=== PATIENT | male | born 1975 | race Caucasian/White ===

== ENCOUNTER 2017-04-09 11:31 | Inpatient (IN) | payer OTHER ==
--- NOTE | 2017-04-09 11:48 | EDPHY ---
H & P Stated Complaint: BARRY, GENERALIZED ABD PAIN, N/V Time Seen by Provider: 04/09/17 11:45 HPI/ROS: 41-year-old male presents complaining diffuse abdominal pain crampy in nature with occasional diarrhea also with vomiting that began today. Five days ago he began to have what he thought was a cold, body aches and just did not feel well 3 days ago he began to have some crampy abdominal pain intermittent. He felt better yesterday and then began this morning the abdominal pain returned was crampy associated with both vomiting and diarrhea. States his last regular bowel movement was on Wednesday. He drinks alcohol daily generally too tall boys with several shots. He has not seen a doctor since 1992. Review of systems As per HPI General no fever no chills no weakness HEENT no eye pain no eye discharge. No eye redness, no sore throat Respiratory no cough, no shortness of breath Cardiac no chest pain, no peripheral edema GI positive abdominal pain positive diarrhea positive constipation positive nausea positive vomiting no flank pain, no hematuria, no dysuria Musculoskeletal positive myalgias, no joint pain Heme no easy bruising, no easy bleeding Endo no polyuria, no polydipsia Skin no rashes, no pruritus Neuro no syncope, no dizziness, no headaches Psych is no suicidal ideation, no homicidal ideation Source: Patient - Personal History Current Tetanus/Diphtheria Vaccine: Unsure - Medical/Surgical History Other PMH: HAND SURG - Family History Significant Family History: No pertinent family hx - Social History Smoking Status: Current some day smoker Alcohol Use: Heavy - Physical Exam Exam: 41-year-old male morbidly obese alert and oriented, in moderate distress secondary to abdominal pain, afebrile HEENT atraumatic normocephalic, extraocular muscles intact, anicteric Oropharynx negative for erythema negative exudate, tolerating her own secretions Neck supple no meningismus Lungs clear to auscultation bilaterally Heart regular rate and rhythm without murmur rub or gallop Abdomen morbidly obese, tinkling bowel sounds, diffuse mild tenderness no guarding no rebound Area above umbilicus feels firm however nontender to palpation Exam is difficult secondary to patient's body habitus Back no CVA tenderness, no step-offs, no spinal tenderness Extremities no cyanosis clubbing or edema Neuro alert and oriented, no focal deficits Constitutional: Initial Vital Signs Temperature (C) 36.2 C 07/14/17 11:41 Heart Rate 83 04/09/17 11:41 Respiratory Rate 22 H 04/09/17 11:41 Blood Pressure 149/111 H 04/09/17 11:41 O2 Sat (%) 96 04/09/17 11:41 O2 Delivery Mode Room Air Allergies/Adverse Reactions: No Known Allergies Allergy (Unverified 04/09/17 11:40) Home Medications: Medication Instructions Recorded NK [No Known Home Meds] 04/09/17 Medical Decision Making - Diagnostics Imaging Results: Imaging Impressions Abdomen X-Ray 04/09/17 12:06 Impression: 1. Adynamic ileus. 2. Nodule of left hemithorax, possibly in the skin. ED Course/Re-evaluation: Patient seen and evaluated for abdominal pain Differential diagnosis considered Appendicitis, diverticulitis, bowel obstruction, volvulus, acute cholecystitis, pancreatitis, gastroenteritis, hepatitis Patient with no prior abdominal surgeries IV established Patient given IV normal saline 1 L, morphine 4 mg, Zofran 4 mg Plain films obtained Possible ileus with mild distention of small and large intestine CT abdomen and pelvis with contrast obtained Patient was unable to tolerate p.o. contrast Given Reglan and Benadryl and an additional [address] abdomen positive for diverticulitis Impression Diverticulitis Plan IV Flagyl 500 mg given Admit to [facility] discussed with Dr. Escalona - Data Points Laboratory Results: Laboratory Results 04/09/17 11:50 04/09/17 11:50 04/09/17 04/09/17 04/09/17 12:53 11:50 11:50 WBC 11.65 10^3/uL H 10^3/uL (3.80-9.50) RBC 5.75 10^6/uL 10^6/uL (4.40-6.38) Hgb 17.2 g/dL g/dL (13.7-17.5) Hct 48.9 % % (40.0-51.0) MCV 85.0 fL fL (81.5-99.8) MCH 29.9 pg pg (27.9-34.1) MCHC 35.2 g/dL g/dL (32.4-36.7) RDW 12.3 % % (11.5-15.2) Plt Count 397 10^3/uL 10^3/uL (150-400) MPV 9.4 fL fL (8.7-11.7) Neut % (Auto) 77.5 % H % (39.3-74.2) Lymph % (Auto) 12.6 % L % (15.0-45.0) Rutherford % (Auto) 8.8 % % (4.5-13.0) Eos % (Auto) 0.4 % L % (0.6-7.6) Baso % (Auto) 0.4 % % (0.3-1.7) Nucleat RBC Rel Count 0.0 % % (0.0-0.2) Absolute Neuts (auto) 9.03 10^3/uL H 10^3/uL (1.70-6.50) Absolute Lymphs (auto) 1.47 10^3/uL 10^3/uL (1.00-3.00) Absolute Monos (auto) 1.02 10^3/uL H 10^3/uL (0.30-0.80) Absolute Eos (auto) 0.05 10^3/uL 10^3/uL (0.03-0.40) Absolute Basos (auto) 0.05 10^3/uL 10^3/uL (0.02-0.10) Absolute Nucleated RBC 0.00 10^3/uL 10^3/uL (0-0.01) Immature Gran % 0.3 % % (0.0-1.1) Immature Gran # 0.03 10^3/uL 10^3/uL (0.00-0.10) PT INR APTT VBG Lactic Acid 1.0 mmol/L mmol/L (0.7-2.1) Sodium 139 mEq/L mEq/L (134-144) Potassium 4.1 mEq/L mEq/L (3.5-5.2) Chloride 103 mEq/L mEq/L (97-110) Carbon Dioxide 20 mEq/l L mEq/l (22-31) Anion Gap 16 mEq/L mEq/L (8-16) BUN 9 mg/dL mg/dL (7-23) Creatinine 0.8 mg/dL mg/dL (0.7-1.3) Estimated GFR > 60 Glucose 114 mg/dL H mg/dL (70-100) Calcium 9.3 mg/dL mg/dL (8.5-10.4) Total Bilirubin 0.8 mg/dL mg/dL (0.1-1.4) AST 19 IU/L IU/L (17-59) ALT 44 IU/L IU/L (21-72) Alkaline Phosphatase 79 IU/L IU/L (38-126) Total Protein 7.5 g/dL g/dL (6.3-8.2) Albumin 4.0 g/dL g/dL (3.5-5.0) Lipase 74.0 IU/L IU/L (23-300) 04/09/17 11:45 WBC RBC Hgb Hct MCV MCH MCHC RDW Plt Count MPV Neut % (Auto) Lymph % (Auto) Rutherford % (Auto) Eos % (Auto) Baso % (Auto) Nucleat RBC Rel Count Absolute Neuts (auto) Absolute Lymphs (auto) Absolute Monos (auto) Absolute Eos (auto) Absolute Basos (auto) Absolute Nucleated RBC Immature Gran % Immature Gran # PT 12.6 SEC SEC (12.0-15.0) INR 0.97 (0.83-1.16) APTT 29.4 SEC SEC (23.0-38.0) VBG Lactic Acid Sodium Potassium Chloride Carbon Dioxide Anion Gap BUN Creatinine Estimated GFR Glucose Calcium Total Bilirubin AST ALT Alkaline Phosphatase Total Protein Albumin Lipase Medications Given: Discontinued Medications Diphenhydramine HCl (Benadryl Injection) 25 mg IVP EDNOW ONE Stop: 04/09/17 13:22 Last Admin: 04/09/17 13:28 Dose: 25 mg Sodium Chloride (Ns) 1,000 mls @ 0 mls/hr IV ONCE ONE PRN Reason: Wide Open Stop: 04/09/17 11:50 Last Admin: 04/09/17 11:57 Dose: 1,000 mls Sodium Chloride (Ns) 1,000 mls @ 0 mls/hr IV ONCE ONE PRN Reason: Wide Open Stop: 04/09/17 13:22 Last Admin: 04/09/17 13:28 Dose: 1,000 mls Metoclopramide HCl (Reglan Injection) 10 mg IVP EDNOW ONE Stop: 04/09/17 13:22 Last Admin: 04/09/17 13:28 Dose: 10 mg Morphine Sulfate (Morphine) 4 mg IVP EDNOW ONE Stop: 04/09/17 12:06 Last Admin: 04/09/17 12:38 Dose: 4 mg Morphine Sulfate (Morphine) 4 mg IVP EDNOW ONE Stop: 04/09/17 13:54 Last Admin: 04/09/17 13:59 Dose: 4 mg Ondansetron HCl (Zofran) 4 mg IVP EDNOW ONE Stop: 04/09/17 11:50 Last Admin: 04/09/17 11:59 Dose: 4 mg Departure - Departure Disposition: [facility] Inpatient Acute Clinical Impression: Acute diverticulitis Condition: Good
[2017-04-09] MEDS ORDERED: ONDANSETRON 4 MG/2 ML VIAL IVP ONE (11:49)
[2017-04-09] MEDS ORDERED: NS 1,000 ML IV ONE ×2 (11:49→13:21)
[2017-04-09 11:54] LABS: % IMMATURE GRANULYOCYTES 0.3 % (0.0-1.1); ABSOLUTE IMMATURE GRANULOCYTES 0.03 10^3/uL (0.00-0.10); ADD DIFF? NO; ADD MORPH? NO; ADD SCAN? NO; ATYPICAL LYMPHOCYTE FLAG 60 (0-99); FRAGMENT RBC FLAG 0 (0-99); HEMATOCRIT 48.9 % (40.0-51.0); HEMOGLOBIN 17.2 g/dL (13.7-17.5); LEFT SHIFT FLG 10 (0-99); LIPEMIA HEMOLYSIS FLAG 90 (0-99); MEAN CELL HEMOGLOBIN 29.9 pg (27.9-34.1); MEAN CELL HEMOGLOBIN CONCENTR. 35.2 g/dL (32.4-36.7); MEAN PLATELET VOLUME 9.4 fL (8.7-11.7); PLATELET CLUMPS FLAG 20 (0-99); PLATELET COUNT 397 10^3/uL (150-400); RED BLOOD CELL COUNT 5.75 10^6/uL (4.40-6.38); RED CELL DISTRIBUTION WIDTH 12.3 % (11.5-15.2)
[2017-04-09 12:06] LABS: ALANINE AMINOTRANSFERASE 44 IU/L (21-72); ALKALINE PHOSPHATASE 79 IU/L (38-126); ANION GAP 16 mEq/L (8-16); ASPARTATE AMINOTRANSFERASE 19 IU/L (17-59); BILIRUBIN,TOTAL 0.8 mg/dL (0.1-1.4); CALCIUM 9.3 mg/dL (8.5-10.4); CARBON DIOXIDE 20 mEq/l (22-31); CHLORIDE 103 mEq/L (97-110); CREATININE 0.8 mg/dL (0.7-1.3); GLOMERULAR FILTRATION RATE > 60; GLUCOSE 114 mg/dL (70-100); POTASSIUM 4.1 mEq/L (3.5-5.2); SODIUM 139 mEq/L (134-144); TOTAL PROTEIN 7.5 g/dL (6.3-8.2)
[2017-04-09 12:52] LABS: INR 0.97 (0.83-1.16); PROTIME(PATIENT) 12.6 SEC (12.0-15.0)
[2017-04-09 12:53] LABS: APTT 29.4 SEC (23.0-38.0)
[2017-04-09] MEDS ORDERED: IOPAMIDOL (ISOVUE-300) 100 ML BTL ONE ×2 (12:53→13:35)
[2017-04-09] MEDS ORDERED: METOCLOPRAMIDE 10 MG/2 ML VIAL IVP ONE (13:21)
[2017-04-09] MEDS ORDERED: CIPROFLOXACIN 400 MG/DEXTROSE 200 ML IV ONE (14:04)
[2017-04-09] MEDS ORDERED: HYDROmorphONE/DILAUDID 1 MG/ML SYR IVP ONE (15:23)
[2017-04-09] MEDS ORDERED: HYDROmorphONE/DILAUDID 1 MG/ML SYR ONE (15:25)
[2017-04-09] MEDS ORDERED: oxyCODONE IR 5 MG TAB PO PRN (18:12)
[2017-04-09] MEDS ORDERED: ONDANSETRON DISINTEGRATING 4 MG TAB PO PRN (18:12)
[2017-04-09] MEDS ORDERED: ONDANSETRON 4 MG/2 ML VIAL IVP PRN (18:12)
[2017-04-09] MEDS ORDERED: HYDROmorphONE/DILAUDID 1 MG/ML SYR IVP PRN (18:12)
[2017-04-09] MEDS: NS 1,000 ML IV SCH (18:38)
[2017-04-09] MEDS: ERTAPENEM 1 GM in NS 100 ML IV SCH (18:40)
--- NOTE | 2017-04-09 20:40 | GHP ---
[f rep st] HISTORY AND PHYSICAL DATE OF ADMISSION: 04/09/2017 CHIEF COMPLAINT: Abdominal pain. HISTORY OF PRESENT ILLNESS: A 41-year-old male who has no known medical problems. He presents with 4 days of lower abdominal pain associated with nausea and vomiting. He has not had any fevers or c hills. He has not had pain like this before. No previous history of diverticulitis. He has had a little bit of diarrhea. REVIEW OF SYSTEMS: A 10-point review of systems was obtained, other than stated above is negative. PAST MEDICAL HISTORY: None. MEDICATIONS: None. SOCIAL HISTORY: Does drink 2 large beers and 2 shots daily. He has not drank for the last 3 days. He works at [employer]. FAMILY HISTORY: No family history of diverticulitis. PHYSICAL EXAMINATION: VITAL SIGNS: Afebrile, blood pressure is 150/103, heart rate 84, oxygen satu ration 93% on room air. GENERAL: He is well developed, in no apparent distress. HEENT: Nonicteri c sclerae. Extraocular movements intact. Moist mucous membranes. NECK: Supple. No thyromegaly. LUNGS: Good effort. Clear to auscultation bilaterally. CARDIOVASCULAR: Regular rate and rhythm. No murmurs or gallops. ABDOMEN: Positive bowel sounds. Soft, nondistended. No hepatosplenomega ly. Mild left lower quadrant tenderness. EXTREMITIES: No clubbing, cyanosis, or edema. SKIN: Wi thout rash. Warm, dry, intact. NEUROLOGIC: Alert and oriented x3. Moving all 4 extremities equal ly. PSYCH: Normal mood and affect. LABS: White count is elevated at 11, otherwise normal. Chemistries normal. CT scan of the abdomen and pelvis, personally reviewed and interpreted, shows extensive inflammation of the sigmoid colon. There is also air distention of the colon upstream from the inflammation. ASSESSMENT: This is a 41-year-old male with diverticulitis. PLAN: Diverticulitis. We will continue the IV antibiotics. Keep him on clear liquid diet tonight and probably can advance him tomorrow if he is feeling okay. There is a question of upstream air fr om an area of inflammation in his colon on CT scan and recommendation for colonoscopy. This probabl y would be done as outpatient. /[id number]/MODL
[2017-04-09] MEDS: OXYCODONE/APAP 5/325 TAB PO PRN (20:41)
[2017-04-09] MEDS: ENOXAPARIN 40 MG/0.4 ML SYR SC SCH (20:42)
[2017-04-10] MEDS: OXYCODONE/APAP 5/325 TAB PO PRN (03:55)
[2017-04-10] MEDS: NS 1,000 ML IV SCH (03:56)
[2017-04-10 05:30] LABS: ALANINE AMINOTRANSFERASE 33 IU/L (21-72); ALBUMIN 3.1 g/dL (3.5-5.0); ALKALINE PHOSPHATASE 55 IU/L (38-126); ANION GAP 13 mEq/L (8-16); ASPARTATE AMINOTRANSFERASE 16 IU/L (17-59); BILIRUBIN,TOTAL 0.5 mg/dL (0.1-1.4); CALCIUM 8.8 mg/dL (8.5-10.4); CARBON DIOXIDE 20 mEq/l (22-31); CHLORIDE 106 mEq/L (97-110); CREATININE 0.8 mg/dL (0.7-1.3); GLOMERULAR FILTRATION RATE > 60; GLUCOSE 113 mg/dL (70-100); POTASSIUM 4.3 mEq/L (3.5-5.2); SODIUM 139 mEq/L (134-144); TOTAL PROTEIN 6.3 g/dL (6.3-8.2)
[2017-04-10 05:36] LABS: ADD MORPH? NO; ADD SCAN? YES; FRAGMENT RBC FLAG 0 (0-99); HEMATOCRIT 41.9 % (40.0-51.0); HEMOGLOBIN 14.4 g/dL (13.7-17.5); LEFT SHIFT FLG 0 (0-99); LIPEMIA HEMOLYSIS FLAG 90 (0-99); MEAN CELL HEMOGLOBIN 30.4 pg (27.9-34.1); MEAN CELL HEMOGLOBIN CONCENTR. 34.4 g/dL (32.4-36.7); MEAN CELL VOLUME 88.6 fL (81.5-99.8); MEAN PLATELET VOLUME 9.8 fL (8.7-11.7); PLATELET CLUMPS FLAG 0 (0-99); PLATELET COUNT 325 10^3/uL (150-400); RED BLOOD CELL COUNT 4.73 10^6/uL (4.40-6.38); RED CELL DISTRIBUTION WIDTH 12.4 % (11.5-15.2)
[2017-04-10 05:38] LABS: ATYPICAL LYMPHOCYTE FLAG 130 (0-99)
[2017-04-10 06:36] LABS: ADD DIFF? YES; SCAN POSITIVE
[2017-04-10 06:40] LABS: MACROCYTES 1+; PLATELET ESTIMATE ADEQUATE (ADEQ)
[2017-04-10 06:41] LABS: TOXIC GRANULATION PRESENT
[2017-04-10] MEDS: ERTAPENEM 1 GM in NS 100 ML IV SCH (10:07)
[2017-04-10] MEDS: ENOXAPARIN 40 MG/0.4 ML SYR SC SCH (10:07)
--- NOTE | 2017-04-10 10:08 | HOSPPROG ---
Hospitalist Progress Note Assessment/Plan: # acute diverticulitis, proximal colon dilated with air - cont invanz - need colonoscopy as outpatient - clears today # leukocytosis, resolved # nonspecific RUQ LAD - f/u CT 3 months; discussed with patient # skin tag seen on CXR # morbid obesity - BMI 55 Subjective: abd pain much better today; no BM Objective: Vital Signs Temp Pulse Resp BP Pulse Ox 36.6 C 64 14 162/88 H 95 04/10/17 08:00 04/10/17 08:00 04/10/17 08:00 04/10/17 08:00 04/10/17 08:00 Laboratory Results 04/10/17 04:50 04/10/17 04:50 04/09/17 04/10/17 04/11/17 05:59 05:59 05:59 Intake Total 3480 Output Total 300 Balance 3180 PT 12.6 SEC (12.0-15.0) 04/09/17 11:45 INR 0.97 (0.83-1.16) 04/09/17 11:45 CT reviewed; chart reviewed ICD10 Worksheet Patient Problems: Problems Problem Status Onset Acute diverticulitis Acute
[2017-04-10] MEDS: LISINOPRIL 10 MG TAB PO SCH (12:24)
[2017-04-10] MEDS: ACETAMINOPHEN 325 MG TAB PO PRN (17:35)
[2017-04-10] MEDS: ENOXAPARIN 60 MG/0.6 ML SYR SC SCH (21:10)
[2017-04-10 23:11] VITALS: RESP 16
[2017-04-11] MEDS: ACETAMINOPHEN 325 MG TAB PO PRN (07:02)
[2017-04-11 08:58] VITALS: BP 146/89; PULSE 67; TEMP 97.5; O2SAT 96
[2017-04-11] MEDS: ERTAPENEM 1 GM in NS 100 ML IV SCH (09:24)
[2017-04-11] MEDS: ENOXAPARIN 60 MG/0.6 ML SYR SC SCH (09:25)
[2017-04-11] MEDS: LISINOPRIL 10 MG TAB PO SCH (09:25)
--- NOTE | 2017-04-11 19:27 | GDS ---
[f rep st] DISCHARGE SUMMARY ALL DIAGNOSES: 1. Acute diverticulitis. 2. Leukocytosis. 3. Morbid obesity. 4. Skin tag. 5. Hypertension. HOSPITAL COURSE: A 41-year-old man presented with abdominal pain. This is shown to be acute divert iculitis. He resolved very nicely on Invanz. He is eating a full meal, tolerating his pain without any IV or oral narcotics for more than 24 hours. He will be discharged with an additional 7 days o f Levaquin and Flagyl. I have given him warnings for side effects of these medications. I discussed with him that he will need a followup colonoscopy. I have given him a referral to see Ivonne Woods as an outpatient. This was discussed with him. He had nonspecific right upper quadrant lymphadenopathy seen on CT scan. I discussed with him the ivonne lanza before discharge that he will need a followup CT scan in 3 months. I put this on his discharge p barrett. He was hypertensive while here. I suspect this is long-standing. I have given him 30 days of lisin opril 10 mg daily. Recommend that he establish care with a primary care physician for ongoing monit oring of this. He will also check his blood pressures at pharmacy in the meantime. BILLING: I spent more than 30 minutes on the day of discharge coordinating care. /[id number]/MODL
== END 2017-04-11 11:30 | disposition home or self-care (01) | DRG 392 ==
LOC: CED 11:31 → CEDHOLD 14:31 → F3E 17:32
PROVIDERS: ADMIT Internal Medicine; ATTEND Internal Medicine
DX: K57.92 Diverticulitis of intestine, part unspecified, without perforation or abscess without bleeding (principal); I10 Essential (primary) hypertension; E66.01 Morbid (severe) obesity due to excess calories; Z68.43 Body mass index [BMI] 50.0-59.9, adult; F17.210 Nicotine dependence, cigarettes, uncomplicated; R59.0 Localized enlarged lymph nodes; L91.8 Other hypertrophic disorders of the skin
CPT/HCPCS: 74022-PO; 74177-PO; 80053-PO; 83605-PO; 83690-PO; 85025-PO; 85610-PO; 85730-PO; 96365; J0744; J1170; J1200; J1335; J1650; J2405; J2765; Q9967